=== PATIENT | male | born 1965 | race Caucasian/White ===

== ENCOUNTER 2017-09-07 09:26 | Outpatient (RCR) | payer OTHER, SELFPAY | END 2017-09-10 23:59 | disposition home or self-care (01) | LOC: NS 09:26 | DX: Z68.39 Body mass index [BMI] 39.0-39.9, adult (principal); Z71.3 Dietary counseling and surveillance | CPT/HCPCS: 97802 ==

== ENCOUNTER 2017-10-05 10:15 | Outpatient (RCR) | payer OTHER, SELFPAY | END 2017-10-11 23:59 | LOC: NS 10:15 | DX: E78.5 Hyperlipidemia, unspecified (principal); Z68.36 Body mass index [BMI] 36.0-36.9, adult; Z71.3 Dietary counseling and surveillance | CPT/HCPCS: 97803 ==

== ENCOUNTER 2017-11-02 08:51 | Outpatient (RCR) | payer OTHER, SELFPAY | END 2017-11-10 23:59 | LOC: NS 08:51 | DX: E78.00 Pure hypercholesterolemia, unspecified (principal); Z68.36 Body mass index [BMI] 36.0-36.9, adult; Z71.3 Dietary counseling and surveillance | CPT/HCPCS: 97803 ==

== ENCOUNTER 2017-11-30 08:30 | Outpatient (RCR) | payer OTHER, SELFPAY | END 2017-12-11 23:59 | LOC: NS 08:30 | DX: E78.00 Pure hypercholesterolemia, unspecified (principal); Z68.36 Body mass index [BMI] 36.0-36.9, adult; Z71.3 Dietary counseling and surveillance | CPT/HCPCS: 97803 ==

== ENCOUNTER 2017-12-28 08:21 | Outpatient (RCR) | payer OTHER, SELFPAY | END 2018-01-11 23:59 | LOC: NS 08:21 | DX: E78.00 Pure hypercholesterolemia, unspecified (principal); Z68.36 Body mass index [BMI] 36.0-36.9, adult; Z71.3 Dietary counseling and surveillance | CPT/HCPCS: 97803 ==

== ENCOUNTER 2018-06-14 08:36 | Outpatient (RCR) | payer OTHER, SELFPAY | END 2018-07-11 23:59 | LOC: NS 08:36 | DX: E78.00 Pure hypercholesterolemia, unspecified (principal); E66.9 Obesity, unspecified; Z68.36 Body mass index [BMI] 36.0-36.9, adult; Z71.3 Dietary counseling and surveillance | CPT/HCPCS: 97803 ==

== ENCOUNTER 2018-07-12 08:42 | Outpatient (RCR) | payer OTHER, SELFPAY | END 2018-08-11 23:59 | LOC: NS 08:42 | DX: E78.00 Pure hypercholesterolemia, unspecified (principal); E66.9 Obesity, unspecified; Z68.36 Body mass index [BMI] 36.0-36.9, adult; Z71.3 Dietary counseling and surveillance | CPT/HCPCS: 97803 ==

== ENCOUNTER 2018-08-23 09:55 | Outpatient (RCR) | payer OTHER, SELFPAY | END 2018-09-10 23:59 | LOC: NS 09:55 | DX: E78.00 Pure hypercholesterolemia, unspecified (principal); E66.9 Obesity, unspecified; Z68.36 Body mass index [BMI] 36.0-36.9, adult; Z71.3 Dietary counseling and surveillance | CPT/HCPCS: 97803 ==

== ENCOUNTER 2018-09-20 08:39 | Outpatient (RCR) | payer SELFPAY | END 2018-10-11 23:59 | LOC: NS 08:39 | DX: E78.00 Pure hypercholesterolemia, unspecified (principal); E66.9 Obesity, unspecified; Z68.36 Body mass index [BMI] 36.0-36.9, adult; Z71.3 Dietary counseling and surveillance | CPT/HCPCS: 97803 ==

== ENCOUNTER 2018-11-29 08:02 | Outpatient (RCR) | payer SELFPAY | END 2018-11-29 23:59 | disposition home or self-care (01) | LOC: NS 08:02 | DX: E78.00 Pure hypercholesterolemia, unspecified (principal); E66.9 Obesity, unspecified; Z68.36 Body mass index [BMI] 36.0-36.9, adult; Z71.3 Dietary counseling and surveillance | CPT/HCPCS: 97803 ==

== ENCOUNTER → 2023-10-09 | Outpatient (CLI) | payer OTHER, SELFPAY ==
[2023-10-09 12:32] LABS: Anion Gap 5 (5-15); BUN 18 mg/dL (7-18); Calcium,Total 9.3 mg/dL (8.5-10.1); Chloride 109 mmol/L (98-107); Creatinine, Serum 0.94 mg/dL (0.70-1.30); EST Glomerular Filtration Rate 87 mL/min (>60); Est Glom Filt Rate - Afr Amer 106 mL/min (>60); Glucose 133 mg/dL (74-106); Potassium 4.5 mmol/L (3.5-5.1); Sodium Level 139 mmol/L (136-145)
== END | disposition home or self-care (01) ==
PROVIDERS: PCP Family Medicine; Referring Provider Family Medicine; Visit Provider Family Medicine
DX: I10 Essential (primary) hypertension (principal)
CPT/HCPCS: 36415; 80048

== ENCOUNTER → 2023-12-28 | Outpatient (CLI) | payer OTHER, SELFPAY | END | disposition home or self-care (01) | PROVIDERS: PCP Family Medicine | DX: K63.5 Polyp of colon (principal) ==

== ENCOUNTER 2024-01-17 05:18 | Day surgery (SDC) | payer OTHER, SELFPAY ==
[2024-01-17] VITALS (8 sets, daily range): BP systolic 106–137; BP diastolic 67–99; PULSE 72–84; RESP 16–18; TEMP 36.3–36.7; O2SAT 93–96; BMI 38.7
[2024-01-17] MEDS: Lactated Ringers 1,000 ML 15 ML IV (05:50)
--- NOTE | 2024-01-17 06:30 | EGD_PTH ---
PATIENT: LOVE NIELSON Jr. LOC: [facility] U#:[id number] AGE/SX: 58/M ROOM: RE01/17/[address]: Dr. Jon Solis DO : 1965 BED: DIS: 01/17/2024 SPEC #: [id number] RECD: 01/17/24 09:38 STATUS: ELIANE ATKINS #: [id number] ANGEL: 01/17/24 06:[address]: Jon Solis DEPT: SURGICAL PATHOLOGY RECD BY: Citlali Zheng ENTERED: 01/17/24 10:33 SP TYPE: EGD BIOPSY SONNY DR: Dr. Janet Castillo DO Tissues: A - Duodenum, NOS B - Gastric mucous membrane C - Esophagus, NOS D - Sigmoid colon biopsy Procedures: Surgery Specimen Level IV HEADER OPERATION: Colonoscopy, EGD biopsy PRE-OP DIAGNOSIS: Gastroesophageal reflux disease, colon polyposis TISSUE SUBMITTED: A- Duodenum biopsy, B- Gastric body biopsy, C- Distal esophagus biopsy, D- Sigmoid polyp biopsy MICROSCOPIC DIAGNOSIS A- Duodenum, biopsy: Fragments of duodenal mucosa, no pathologic diagnosis. B- Gastric body, biopsy: Mild gastritis. See microscopic description and comment. C- Distal esophagus, biopsy: Fragments of gastroesophageal mucosa with chronic inflammation. Intestinal metaplasia (goblet cell metaplasia) not identified. See comment. D- Sigmoid polyp, biopsy: Hyperplastic polyp. SJ: 01/18/2024 COMMENT B. The results of immunohistochemistry for Helicobacter pylori will be reported separately ([id number]). C. Alcian blue/PAS stain with matched control is used in the evaluation of the specimen. MICROSCOPIC DESCRIPTION Slides are reviewed. B. The specimen shows fragments of gastric mucosa with chronic inflammatory cell infiltrates in the lamina propria consisting of lymphocytes and plasma cells, consistent with mild chronic gastritis. GROSS DESCRIPTION A. Received in fixative is one container labeled with the patient's name and designated Duodenum biopsy. The specimen consists of multiple irregular fragments of light cooper soft tissue that in aggregate measure 1.2 x 0.3 x 0.1 cm. The specimen is totally submitted in one cassette. B. Received in fixative is one container labeled with the patient's name and designated Gastric body biopsy. The specimen consists of multiple irregular fragments of light cooper soft tissue that in aggregate measure 0.6 x 0.3 x 0.1 cm. The specimen is totally submitted in one cassette. C. Received in fixative is one container labeled with the patient's name and designated Distal esophagus biopsy. The specimen consists of two irregular fragments of light cooper soft tissue that in aggregate measure 0.6 x 0.3 x 0.1 cm. The specimen is totally submitted in one cassette. D. Received in fixative is one container labeled with the patient's name and designated Sigmoid polyp biopsy. The specimen consists of one irregular fragment of light cooper soft tissue that measures 0.3 x 0.3 x 0.1 cm. The specimen is totally submitted in one cassette. SJ.mr 01/17/2024 TC:3 CPT:72572c0, 06186
--- NOTE | 2024-01-17 06:30 | IMM_PTH ---
PATIENT: LOVE NIELSON Jr. LOC: EN U#:[id number] AGE/SX: 58/M ROOM: RE01/17/[address]: Dr. Jon Solis DO : 1965 BED: DIS: 01/17/2024 SPEC #: [id number] RECD: 01/17/24 12:13 STATUS: ELIANE REQ #: [id number] ANGEL: 01/17/24 06:[address]: Jon Solis DEPT: IMMUNOHISTOCHEMISTRY RECD BY: Venancio Palacios ENTERED: 01/17/24 12:14 SP TYPE: IMMUNO OTHR DR: Dr. Janet Castillo, Tissues: B - Gastric mucous membrane Procedures: H Pylori (initial) PHYSICIAN & INSTITUTION [place] [id number] SPECIMEN INFORMATION: Tissue Source: B- Gastric body biopsy Clinical Info: Gastroesophageal reflux disease, colon polyposis Specimen Number: [id number] CPT code: 25826 METHODOLOGY: Deparaffinized sections of prefer/formalin-fixed tissue or PAP/DQ stained slides are incubated with monoclonal/polyclonal antibodies/oligonucleotide probes. Localization is made via biotin free immunoperoxidase method. Appropriate controls are performed and reacted as expected. Results on target cell population are indicated in the following table: RESULTS: ANTIBODY / CLONE RESULT Block B H Pylori (polyclonal) negative These tests were developed and their performance characteristics determined by [facility]. They may not have been cleared or approved by the U.S. Food and Drug Administration. The FDA has determined that such clearance or approval is not necessary. The above immunohistochemical/dualISH markers are ordered and reviewed by the Pathologist. INTERPRETATION: B. Gastric body, biopsy: Negative for Helicobacter pylori organisms. MEGAN/ 01/21/2024
--- NOTE | 2024-01-17 06:41 | PRE.ANES_ITS ---
ASA Classification* ASA Classification ASA Classification: 3 Assessment & Plan Anesthesia* Anesthesia Assessment Anesthesia Assessment: Discussed sedation and/or anesthesia options, risks, benefits, and alternatives with patient/parents/legal guardian/POA. Questions invited. The patient/parents/legal guardian/POA seems to understand and agrees to proceed with anesthesia plan. Reviewed the physical assessment, medical history, allergy history and patient home medications list prior to surgery/procedure/anesthetic and documented any changes. Performed airway and anesthesia risk assessments. Anesthesia Type Anesthesia Type: MAC History Source History Obtained from:: Patient and Chart Anesthesia Focused Assessment* Temperature: 97.8 F Pulse Rate: 72 Blood Pressure: 137/93 Respiratory Rate: 16 Pulse Ox: 96 Airway Assessment Mouth opens: >3 cm Mallampati Score: II Teeth Condition: Intact Neck Range of motion (ROM): Full ROM Focused Labs Anesthesia Preop lab: CBC CHEMISTRY Potassium 4.5 mmol/L (3.5-5.1) 10/09/23 11:13 Sodium 139 mmol/L (136-145) 10/09/23 11:13 BUN 18 mg/dL (7-18) 10/09/23 11:13 Creatinine 0.94 mg/dL (0.70-1.30) 10/09/23 11:13 Glucose 133 mg/dL (74-106) H 10/09/23 11:13 COAG Pre-Assessment Diagnosis/Proposed Procedure Planned Operative Procedure(s): EGD COLONOSCOPY Anesthesia History Anesthesia History - contracts manager: Anesthesia History - contracts manager Hx Hospitalization No 01/15/24 10:06 Any Problems With Anesthesia No 01/15/24 10:06 Cholinesterase deficiency No 01/15/24 10:06 You/Your Family Experience No 01/15/24 10:06 fever (hyperthermia) with Relationship Recent Exposure to Contagious No 01/17/24 05:48 Disease Does patient have nerve No 01/15/24 10:06 stimulator Patient instructed to have device shut off --Does patient have Pacemaker No 01/17/24 05:48 or ICD? When Was Last Pacemaker Check QUESTION #4 FULL TEXT: You/Your Family Experience fever (hyperthermia) with Anesthesia Last Oral Intake Last Oral intake: Last Oral Intake NPO since 02:30 01/17/24 05:48 Meds taken in AM with sips of water? Meds patient instructed to take am of surgery PONV PONV - contracts manager: PONV - contracts manager Female No 01/15/24 10:06 HX of Motion Sickness No 01/15/24 10:06 HX of N/V After Surgery No 01/15/24 10:06 Non-Smoker Yes 01/15/24 10:06 Duration of Surgery greater No 01/15/24 10:06 than 60 minutes Number of Risk Factors 1 01/15/24 10:06 PONV Score Low Risk 01/15/24 10:06 Height & Weight Height & Weight: Anesthesia: Height & Weight Height 6 ft 1 in 01/17/24 05:48 Weight: 133 kg 01/17/24 05:48 Body Mass Index (BMI) 38.7 01/17/24 05:48 Respiratory Assessment Respiratory Assessment - contracts manager: Respiratory Tract Infection Hx - contracts manager Hx Respiratory Tract Infection No 01/15/24 10:06 STOP Sleep Apnea STOP Sleep Apnea - contracts manager: STOP Sleep Apnea - contracts manager Hx Hypertension Yes 01/15/24 10:06 Hx Sleep Apnea No 01/15/24 10:06 CPAP BIPAP Do you snore loudly (louder No 01/15/24 10:06 than talking or can be heard Do you often feel tired/ No 01/15/24 10:06 fatigued/ sleepy during daytime? Has anyone observed you stop No 01/15/24 10:06 breathing during sleep? STOP Results Negative 01/15/24 10:06 QUESTION #5 FULL TEXT : Do you snore loudly (louder than talking or can be heard through closed doors)? 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 Specify any problems Hx of Preganancy in last 3 N/A 01/15/24 10:06 Months Nurse Filling Out Transfusion [facility] 01/15/24 10:06 & Questions: Date: 01/15/24 01/15/24 10:06 Time: 10:14 01/15/24 10:06 Patient unable to answer at this time (ie. confused, unrespo /Reproduction History /Reproductive History - contracts manager: /Reproductive Hx- contracts manager Hx Now No 01/15/24 10:06 Gestational Age (in weeks): EDC: Hx Hx Para Hx Section SAB No 01/15/24 10:06 Active Medications Active Medications: Current Medications Generic Name Dose Route Start Last Admin Trade Name Freq PRN Reason Stop Dose Admin Lactated Ringer's 1,000 mls @ 15 mls/hr 01/17/24 05:45 01/17/24 05:50 IV 15 mls/hr .Q48H LAKIA Administration PFSH Medical History Wears glasses Latent tuberculosis by skin test Gastric reflux Former smoker Hypertension Colon polyposis Hypertyrosinemia Hyperglycemia Benign hypertension Black stool Colon polyps Elevated blood uric acid level Vitamin D deficiency Morbid obesity Hyperlipidemia History of gastroesophageal reflux (GERD) Acid reflux High cholesterol Home Medications ?Medication ?Instructions ?Recorded ?Last Taken ?Type cholecalciferol (vitamin D3) 1,250 1,250 mcg PO QWEEK 04/04/23 Unknown History mcg (50,000 unit) capsule omeprazole 20 mg capsule,delayed 20 mg PO DAILY 04/04/23 Unknown History release simvastatin 10 mg tablet 10 mg PO QHS 04/04/23 Unknown History losartan 25 mg tablet 25 mg PO DAILY 09/07/23 Unknown History melatonin 10 mg capsule 10 mg PO HS 12/28/23 Unknown History multivitamin 1 tab PO DAILY 12/28/23 Unknown History Allergy/AdvReac Type Severity Reaction Status Date / Time No Known Allergies Allergy Verified 01/17/24 05:46 Family History Other Cancer Heart disease Surgical History History of vasectomy History of esophagogastroduodenoscopy H/O colonoscopy Social History household members: none housing: house Smoking Status: Former smoker alcohol intake: current alcohol intake frequency: holidays/special occasions only Review of Systems (Anesthesia) ROS Narrative System reviewed and no additional complaints, except as documented.
--- NOTE | 2024-01-17 06:42 | PCM.HP.BLA ---
History and Physical Date of Admission: 01/17/24 LOVE NIELSON, is a 58 M who presents to the office today for I establishment. 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 Reports colonoscopies every 5 yrs, with the first in 2007 that had at least 10 polyps removed at once; sequential lower scopes had minimal polypectomies, 1-2 each time; all polyps reportedly non-cancerous. First upper endoscopy in 2011, showed mild tissue changes in lower esophagus, denied reports of Chacon's esophagus. He denies non-cardiac chest pain, excessive belching, coughing, difficulty swallowing, heartburn, and acid reflux. He reports that his primary physician started him on omeprazole 20 mg daily 1.5 yrs ago and he takes that faithfully. ROS Const Constitutional: No fatigue, fever(s), weight change, sleep problems, abnormal sleep pattern or change in appetite Eyes Eyes: No change in vision ENT ENT: Positive for dry mouth (at night due to sleeping w/mouth open); No difficulty swallowing or sore throat Resp Respiratory: No cough Cardio Cardiology: No chest pain at rest, chest pain with exertion or shortness of breath Gastro GI: No abdominal pain, belching, bloating, change in bowel habits, change in stool character, coffee ground emesis, constipation, cramping, diarrhea, heartburn, difficulty swallowing, feeling full early, excessive flatus, incontinent of stools, Vomiting blood/hematemesis, Blood in stool, loose stools, Black,tarry stools, nausea/dyspepsia, pain with swallowing, vomiting or other Genitourinary Male: No difficulty urinating Musc Musculoskeletal: No joint pain or back pain Skin Skin: No yellowing of the eye or itchy eyes Neuro Neurology: No abnormal movements Psych Psychiatric: No abnormal sleep pattern, No anxiety, No change in appetite and No depression Endo Endocrine: No change in body appearance, fatigue or weight change Aller/Imm Allergy/Immunologic: No food intolerance or itchy eyes Deuce/Lymp Hematologic/Lymphatic: No easy bleeding or easy bruising Exam Const General: cooperative and healthy appearing Nutritional Appearance: well nourished and obese Orientation: alert and oriented x3 HENMT Head: normal to inspection Ears: hearing grossly normal bilaterally Face and sinus: normal facial exam and face symmetric Mouth: oral mucosae normal, lip normal and tongue normal Eyes General: appearance normal, both eyes and all related structures Conjunctivae: conjunctivae normal Sclera: sclerae normal Neck Neck: normal visual inspection and full ROM Resp Effort & Inspection: normal respiratory effort and able to speak in complete sentences Cardio Rate: regular rate Rhythm: regular rhythm GI Inspection: normal to inspection and obesity Auscultation: normal bowel sounds Palpation: soft and no hepatosplenomegaly Skin General: no rashes or lesions noted Neuro General: patient alert, patient oriented x3, moves all extremities and normal light touch, pain and propioception Cognition: normal cognition Speech: speech normal Gait: normal gait Extrem General: full ROM Psych Appearance: grossly normal and well kempt Mental Status: mental status grossly normal Affect: normal affect Assessment and Plan Assessment and Plan (1) Gastroesophageal reflux disease: Plan: Patient is here for establishment with [facility] for management of acid reflux and continuation of routine screenings. Denies current complaints, concerns, or difficulties. -Continue omeprazole 20mg daily. -Screening EGD scheduled. (2) Colon polyposis: Status: Acute Plan: Last colonoscopy in 2019; reported first completed out of state in [place] where at least 10 polyps were removed at once, none known to be cancerous. Mother does have a history of breast cancer, discussed genetic testing for hereditary nonpolyposis colorectal cancer and patient agreed. -Screening colonoscopy scheduled. -[facility], [facility] test #[id number] ordered. Orders: Orders Miscellaneous Lab Procedure Today K63.5 - Polyp of colon Coding Level of Care Code New Pt Off vis,new,level 3 Patient Type New History Expanded Problem Focused Exam Expanded Problem Focused Medical Decision Making Low Complexity I have examined the patient and the H&P has been reviewed. There are no clinical changes since date of exam.
--- NOTE | 2024-01-17 07:11 | OP.CCLET_ITS ---
01/17/2024 Janet Byrne Do Re : Upper GI endoscopy procedure for Bright Bailey Dear Caty This procedure was performed on January. My impressions and recommendations are as follows: Impressions : - Z-line irregular, 42 cm from the incisors. Biopsied. - Erythematous mucosa in the gastric body. Biopsied. - Acquired duodenal stenosis. Biopsied. Recommendations : - Discharge patient to home. - Resume previous diet. - Continue present medications. - Await pathology results. My findings are described in the full procedure note, which is enclosed. If I can be of further assistance, please feel free to contact me at . Sincerely, Jon Solis, 01/17/2024 7:10:27 AM This report has been signed electronically.
--- NOTE | 2024-01-17 07:11 | OP.EGD_ITS ---
Patient Name: Bright Bailey Procedure Date: 01/17/2024 6:30 AM Date of : 1965 Age: 58 Procedure: Upper GI endoscopy Indications: Heartburn Providers: Jon Solis DO Referring MD: Janet Byrne Do Medicines: Monitored Anesthesia Care Patient Profile: This is a 58 year old male. Refer to note in patient chart for documentation of history and physical. Patient has symptoms of chronic heartburn. Complications: No immediate complications. Procedure: Pre-Anesthesia Assessment: - Prior to the procedure, a History and Physical was performed, and patient medications and allergies were reviewed. The patient is competent. The risks and benefits of the procedure and the sedation options and risks were discussed with the patient. All questions were answered and informed consent was obtained. Patient identification and proposed procedure were verified by the physician in the pre-procedure area. Mental Status Examination: alert and oriented. Airway Examination: normal oropharyngeal airway and neck mobility. Respiratory Examination: clear to auscultation. CV Examination: normal. Prophylactic Antibiotics: The patient does not require prophylactic antibiotics. Prior Anticoagulants: The patient has taken no anticoagulant or antiplatelet agents except for NSAID medication. ASA Grade Assessment: II - A patient with mild systemic disease. After reviewing the risks and benefits, the patient was deemed in satisfactory condition to undergo the procedure. The anesthesia plan was to use monitored anesthesia care (MAC). Immediately prior to administration of medications, the patient was re-assessed for adequacy to receive sedatives. The heart rate, respiratory rate, oxygen saturations, blood pressure, adequacy of pulmonary ventilation, and response to care were monitored throughout the procedure. The physical status of the patient was re-assessed after the procedure. After obtaining informed consent, the endoscope was passed under direct vision. Throughout the procedure, the patient's blood pressure, pulse, and oxygen saturations were monitored continuously. The Colonoscope was introduced through the mouth, and advanced to the second part of duodenum. The upper GI endoscopy was accomplished without difficulty. The patient tolerated the procedure well. Scope In: 6:46:16 AM Scope Out: 6:50:45 AM Total Procedure Duration Time 0 hours 4 minutes 29 seconds Findings: The Z-line was irregular and was found 42 cm from the incisors. Biopsies were taken with a cold forceps for histology. Verification of patient identification for the specimen was done. Estimated blood loss was minimal. Patchy mildly erythematous mucosa without bleeding was found in the gastric body. Biopsies were taken with a cold forceps for histology. Verification of patient identification for the specimen was done. Estimated blood loss was minimal. Biopsies were taken with a cold forceps for Helicobacter pylori testing. Verification of patient identification for the specimen was done. Estimated blood loss was minimal. An acquired benign-appearing, intrinsic moderate stenosis was found in the duodenal bulb and was traversed. Biopsies were taken with a cold forceps for histology. Verification of patient identification for the specimen was done. Estimated blood loss was minimal. Impression: - Z-line irregular, 42 cm from the incisors. Biopsied. - Erythematous mucosa in the gastric body. Biopsied. - Acquired duodenal stenosis. Biopsied. Recommendation: - Discharge patient to home. - Resume previous diet. - Continue present medications. - Await pathology results. Procedure Code(s): --- Professional --- 99546, Esophagogastroduodenoscopy, flexible, transoral; with biopsy, single or multiple CPT copyright 2021 [employer]. All rights reserved. The codes documented in this report are preliminary and upon engineering mgr review may be revised to meet current compliance requirements. Jon Solis DO 01/17/2024 7:10:27 AM This report has been signed electronically. Number of Addenda: 0 Note Initiated On: 01/17/2024 6:30 AM
--- NOTE | 2024-01-17 07:13 | OP.COLON_ITS ---
Patient Name: Bright Bailey Procedure Date: 01/17/2024 6:50 AM Date of : 1965 Age: 58 Procedure: Colonoscopy Indications: High risk colon cancer surveillance: Personal history of colonic polyps Providers: Jon Solis DO Referring MD: Janet Byrne Do Medicines: Monitored Anesthesia Care Patient Profile: This is a 58 year old male. Refer to note in patient chart for documentation of history and physical. Patient has symptoms of chronic heartburn. Last Colonoscopy: 5 years ago. Complications: No immediate complications. Procedure: Pre-Anesthesia Assessment: - Prior to the procedure, a History and Physical was performed, and patient medications and allergies were reviewed. The patient is competent. The risks and benefits of the procedure and the sedation options and risks were discussed with the patient. All questions were answered and informed consent was obtained. Patient identification and proposed procedure were verified by the physician in the pre-procedure area. Mental Status Examination: alert and oriented. Airway Examination: normal oropharyngeal airway and neck mobility. Respiratory Examination: clear to auscultation. CV Examination: normal. Prophylactic Antibiotics: The patient does not require prophylactic antibiotics. Prior Anticoagulants: The patient has taken no anticoagulant or antiplatelet agents except for NSAID medication. ASA Grade Assessment: II - A patient with mild systemic disease. After reviewing the risks and benefits, the patient was deemed in satisfactory condition to undergo the procedure. The anesthesia plan was to use monitored anesthesia care (MAC). Immediately prior to administration of medications, the patient was re-assessed for adequacy to receive sedatives. The heart rate, respiratory rate, oxygen saturations, blood pressure, adequacy of pulmonary ventilation, and response to care were monitored throughout the procedure. The physical status of the patient was re-assessed after the procedure. After I obtained informed consent, the scope was passed under direct vision. Throughout the procedure, the patient's blood pressure, pulse, and oxygen saturations were monitored continuously. The Colonoscope was introduced through the anus and advanced to the cecum, identified by appendiceal orifice and ileocecal valve. The colonoscopy was performed without difficulty. The patient tolerated the procedure well. The quality of the bowel preparation was adequate. The ileocecal valve, appendiceal orifice, and rectum were photographed. Scope In: 6:54:36 AM Scope Withdrawal Time 0 hours 8 minutes 38 seconds Scope Out: 7:06:25 AM Total Procedure Duration Time 0 hours 11 minutes 49 seconds Findings: The perianal and digital rectal examinations were normal. A few small and large-mouthed diverticula were found in the recto-sigmoid colon and sigmoid colon. A 4 mm polyp was found in the sigmoid colon. The polyp was sessile. The polyp was removed with a cold biopsy forceps. Resection and retrieval were complete. Verification of patient identification for the specimen was done. Estimated blood loss was minimal. The exam was otherwise without abnormality on direct and retroflexion views. Impression: - Diverticulosis in the recto-sigmoid colon and in the sigmoid colon. - One 4 mm polyp in the sigmoid colon, removed with a cold biopsy forceps. Resected and retrieved. - The examination was otherwise normal on direct and retroflexion views. Recommendation: - Discharge patient to home. - Resume previous diet. - Continue present medications. - Await pathology results. - Repeat colonoscopy in 5 years for surveillance. Procedure Code(s): --- Professional --- 10189, Colonoscopy, flexible; with biopsy, single or multiple CPT copyright 2021 [employer]. All rights reserved. The codes documented in this report are preliminary and upon post anesthesia nurse review may be revised to meet current compliance requirements. Jon Solis DO 01/17/2024 7:12:34 AM This report has been signed electronically. Number of Addenda: 0 Note Initiated On: 01/17/2024 6:50 AM
--- NOTE | 2024-01-17 07:13 | OP.CCLET_ITS ---
01/17/2024 Janet Byrne Do Re : Colonoscopy procedure for Bright Bailey Dear Caty This procedure was performed on January. My impressions and recommendations are as follows: Impressions : - Diverticulosis in the recto-sigmoid colon and in the sigmoid colon. - One 4 mm polyp in the sigmoid colon, removed with a cold biopsy forceps. Resected and retrieved. - The examination was otherwise normal on direct and retroflexion views. Recommendations : - Discharge patient to home. - Resume previous diet. - Continue present medications. - Await pathology results. - Repeat colonoscopy in 5 years for surveillance. My findings are described in the full procedure note, which is enclosed. If I can be of further assistance, please feel free to contact me at . Sincerely, Jon Solis, 01/17/2024 7:12:34 AM This report has been signed electronically.
--- NOTE | 2024-01-17 07:16 | PCM.POST.ANE ---
Anesthesia: Postop Eval I Current Vital Signs Temperature: 97.4 F Pulse Rate: 84 Blood Pressure: 106/67 Respiratory Rate: 18 Pulse Ox: 96 Oxygen Delivery Method: Room Air Assessment Airway patent: Yes Spontaneous unlabored respirations: Yes Mental status: Awake and Calm nausea: No Vomiting: No Anesthesia Complication: No Fluid Hydration Crystalloid volume administer (ml): 600 Total IV fluid infused: 600 Progress Note Anesthesia document: Postop Eval 1 completed: Yes
--- NOTE | 2024-01-17 07:43 | PCM.POSTANE2 ---
Anesthesia Postop Eval I Sum Postop Eval Completion status Anesthesia document: Postop Eval 1 completed: Yes Anesthesia Postop Eval I Summary Anesthesia Postop Eval I Summary: Anesthesia Postop Eval I: Assessment Summary Airway patent Yes 01/17/24 07:16 [email or web address] Spontaneous unlabored Yes 01/17/24 07:16 [email or web address] respirations Mental status Awake,Calm 01/17/24 07:16 [email or web address] nausea No 01/17/24 07:16 [email or web address] Vomiting No 01/17/24 07:16 [email or web address] Anesthesia Postop Eval I: Fluid Summary Crystalloid volume administer 600 01/17/24 07:16 [email or web address] (ml) Colloids volume administered ( ml) Blood Product volume administered (ml) Total IV fluid infused 600 01/17/24 07:16 [email or web address] Anesthesia Postop Eval I: Summary Notes Anesthesia Complication No 01/17/24 07:16 [email or web address] Anesthesia Complication Comment: Post-operative progress note Anesthesia: Postop Eval II Evaluation Mental status: Awake Pain Level: 0 nausea: No Vomiting: No
== END 2024-01-17 07:57 | disposition home or self-care (01) ==
LOC: EN 05:20 → AC 05:20
PROVIDERS: PCP Family Medicine; Referring Provider Family Medicine; Visit Provider Internal Medicine Gastroenterology
PROC: 0DJD8ZZ Inspection of Lower Intestinal Tract, Via Natural or Artificial Opening Endoscopic (ICD-10-PCS; CPT 45378; principal; 2024-01-17 06:25)
DX: Z12.11 Encounter for screening for malignant neoplasm of colon (principal); K57.30 Diverticulosis of large intestine without perforation or abscess without bleeding; K21.00 Gastro-esophageal reflux disease with esophagitis, without bleeding; K31.5 Obstruction of duodenum; Z86.010 Personal history of colon polyps; Z79.899 Other long term (current) drug therapy; E66.9 Obesity, unspecified; K29.70 Gastritis, unspecified, without bleeding; K63.5 Polyp of colon; I10 Essential (primary) hypertension; Z87.891 Personal history of nicotine dependence; E78.00 Pure hypercholesterolemia, unspecified
CPT/HCPCS: 45380; 43239; 88305; 88342; J7120; J2405

== ENCOUNTER → 2024-03-17 | Outpatient (CLI) | payer OTHER, SELFPAY ==
[2024-03-17 15:18] LABS: Vitamin D,25 Hydroxy 47.1 ng/mL
[2024-03-17 15:26] LABS: ALB/GLOB Ratio 0.9 RATIO (0.9-2.4); AST(SGOT) 20 U/L (15-37); Alanine Aminotransfer ALT/SGPT 38 U/L (16-61); Albumin, Serum 3.6 g/dL (3.2-5.0); Alkaline Phosphatase 83 U/L (45-117); Anion Gap 7 (5-15); BUN 15 mg/dL (7-18); BUN/Creat Ratio 13.9 RATIO (10-20); Calcium,Total 8.7 mg/dL (8.5-10.1); Chloride 105 mmol/L (98-107); Cholesterol 186 mg/dL (200); Creatinine, Serum 1.08 mg/dL (0.70-1.30); EST Glomerular Filtration Rate 75 mL/min (>60); Est Glom Filt Rate - Afr Amer 90 mL/min (>60); Globulin 3.9 g/dL (2.2-4.2); Glucose 120 mg/dL (74-106); High Density Lipoprotein 51 mg/dL; PSA,Total - Annual Screen 0.76 ng/mL (0.00-4.00); Protein, Total 7.5 g/dL (6.4-8.2); Sodium Level 138 mmol/L (136-145); Thyroid Stim Hormone (TSH) 0.498 uIU/mL (0.358-3.740); Triglycerides 164 mg/dL; Very Low Density Lipoprotein 33 mg/dL (5-40)
== END | disposition home or self-care (01) ==
LOC: LAB 13:57
PROVIDERS: PCP Family Medicine; Referring Provider Family Medicine; Visit Provider Family Medicine
DX: Z00.00 Encounter for general adult medical examination without abnormal findings (principal); Z13.1 Encounter for screening for diabetes mellitus; Z12.5 Encounter for screening for malignant neoplasm of prostate; E78.5 Hyperlipidemia, unspecified; E55.9 Vitamin D deficiency, unspecified
CPT/HCPCS: 36415; 80053; 80061; 82306; 84153; 84443; G0103